=== PATIENT | male | born 1955 | race Two or more races ===

== ENCOUNTER 2016-09-21 01:29 | Emergency (ER) | payer OTHER ==
[~2016-09-21] VITALS: Ht 165.1 cm; Wt 77.1 kg
[2016-09-21 02:51] LABS: Basophils # (auto) 0 uL; Basophils % (auto) 0.2 % (0.0-2.0); Eosinophils # (auto) 0 uL; Eosinophils % (auto) 0.2 % (0.0-7.0); Hematocrit 43.8 % (41.0-53.0); Hemoglobin 14.6 g/dL (13.5-17.5); Lymphocytes # (auto) 1.5 uL; Mean Corpuscular Hemoglobin 30.1 pg (28.0-32.0); Mean Corpuscular Hgb Conc. 33.3 g/dL (32.0-36.0); Mean Corpuscular Volume 90.4 fL (80.0-100.0); Mean Platelet Volume 8.9 fL (7.4-10.4); Monocytes # (auto) 0.9 uL; Monocytes % (auto) 5.8 % (0.0-12.0); Neutrophils # (auto) 12.6 uL; Neutrophils % (auto) 83.8 % (37.0-80.0); Platelet Count (auto) 203 10^3/uL (140-450)
[2016-09-21 03:02] LABS: Albumin 3.7 g/dL (3.4-5.0); BUN/Creatinine Ratio 20.7; Calcium 8.8 mg/dL (8.5-10.1); Magnesium 2.2 mg/dL (1.6-2.6); Potassium 3.8 mmol/L (3.5-5.1)
[2016-09-21 03:05] LABS: Bilirubin, Total 0.6 mg/dL (0.2-1.0); Total Protein 7.8 g/dL (6.4-8.2)
[2016-09-21] MEDS ORDERED: HYDROmorphone HCL 2 MG/ML VL IV ONE (03:30)
[2016-09-21] MEDS ORDERED: ONDANSETRON HCL 4 MG/2 ML VIAL IV ONE (03:30)
[2016-09-21] MEDS ORDERED: NITROGLYCERIN 2% OINT 1GM PKG TD ONE (04:15)
[2016-09-21] MEDS ORDERED: ASPirin 81 mg TAB PO ONE (04:15)
[2016-09-21 04:53] LABS: INR 1.1 (0.9-1.15); Prothrombin Time 11.3 sec (9.37-12.3)
[2016-09-21 05:04] LABS: Temperature: 20.3 C (20.0-25.0)
[2016-09-21] MEDS ORDERED: cefTRIAXone 1GM/50ML D5W 50 ML IV ONE (05:30)
[2016-09-21 07:55] VITALS: BP 127/80
== END 2016-09-21 08:02 | disposition short-term general hospital (02) ==
LOC: ER 01:33
DX: K80.20 Calculus of gallbladder without cholecystitis without obstruction (principal); D72.829 Elevated white blood cell count, unspecified; R74.8 Abnormal levels of other serum enzymes; R79.1 Abnormal coagulation profile; I10 Essential (primary) hypertension; I25.2 Old myocardial infarction
CPT/HCPCS: 36415; 71010; 74176; 76705; 80053; 83690; 83735; 83880; 84484; 85025; 85379; 85610; 85730; 93005; 94761; 96365; 96375; 99285; J0696; J1170; J2405

== ENCOUNTER 2023-11-04 20:14 | Emergency (ER) | payer OTHER ==
[~2023-11-04] VITALS: Ht 165.1 cm; Wt 77.3 kg
[2023-11-04 21:10] LABS: Basophils # (auto) 0.1 10 ^3/uL (0-0.2); Basophils % (auto) 0.8 % (0.0-2.0); Eosinophils # (auto) 0.3 10 ^3/uL (0-0.8); Eosinophils % (auto) 3.5 % (0.0-7.0); Hematocrit 39.6 % (41.0-53.0); Hemoglobin 13.5 g/dL (13.5-17.5); Lymphocytes # (auto) 1.2 10 ^3/uL (0.4-5.4); Lymphocytes % (auto) 17.1 % (10.0-50.0); Mean Corpuscular Hemoglobin 31.6 pg (28.0-32.0); Mean Corpuscular Hgb Conc. 34.1 g/dL (32.0-36.0); Mean Corpuscular Volume 92.8 fL (80.0-100.0); Monocytes # (auto) 0.7 10 ^3/uL (0-1.3); Monocytes % (auto) 9.2 % (0.0-12.0); Neutrophils % (auto) 69.4 % (37.0-80.0); Red Blood Cells 4.27 10^6/uL (4.5-5.90); Red Cell Distribution Width 12.4 % (11.8-14.3); White Blood Cell 7.3 10^3/uL (4.4-10.8)
[2023-11-04 21:18] LABS: Chloride 105 mmol/L (98-107); Potassium 3.8 mmol/L (3.5-5.1); Sodium 138 mmol/L (136-145)
[2023-11-04 21:19] LABS: Anion Gap 8 (5-15); Carbon Dioxide 25 mmol/L (20-30)
[2023-11-04 21:23] LABS: INR 1.05 (0.9-1.15)
[2023-11-04 21:24] LABS: BUN/Creatinine Ratio 14.7 (10.0-20.0); Blood Urea Nitrogen 14 mg/dL (9-23); Glucose 231 mg/dL (74-106)
[2023-11-05 00:30] VITALS: BP 142/76; PULSE 70; RESP 13; TEMP 98.2; O2SAT 96
== END 2023-11-05 00:46 | disposition home or self-care (01) ==
LOC: EDBD 20:14 → ER 20:14
DX: L76.22 Postprocedural hemorrhage of skin and subcutaneous tissue following other procedure (principal); I10 Essential (primary) hypertension; I25.2 Old myocardial infarction
CPT/HCPCS: 36415; 80048; 85025; 85610; 93005